=== PATIENT | female | born 1975 | race African-American/Black ===

== ENCOUNTER 2020-08-10 13:53 | Emergency (ER) | payer MEDICAID ==
[~2020-08-10] VITALS: Ht 165.1 cm; Wt 68.0 kg
[2020-08-10] MEDS ORDERED: ACETAMINOPHEN 325MG TABLET PO STA (15:07)
[2020-08-10 15:56] LABS: CLARITY URINE CLEAR (CLEAR); COLOR URINE YELLOW (YELLOW); KETONES URINE 1+ (NEGATIVE); LEUKOCYTE ESTERASE URINE TRACE (NEGATIVE); NITRITE URINE NEGATIVE (NEGATIVE); OCCULT BLOOD URINE 2+ (NEGATIVE); PH URINE 6.5 (4.5-8.0); PROTEIN URINE TRACE (NEGATIVE); SPECIFIC GRAVITY URINE 1.017 (1.005-1.030)
[2020-08-10 16:18] LABS: *AMPHETAMINES SCREEN URINE NEGATIVE (NEGATIVE); *BARBITURATES SCREEN URINE NEGATIVE (NEGATIVE); *BENZODIAZEPINES SCREEN URINE NEGATIVE (NEGATIVE); *COCAINE SCREEN URINE NEGATIVE (NEGATIVE); PHENCYCLIDINE URINE SCREEN NEGATIVE (NEGATIVE)
[2020-08-10 16:19] LABS: METHADONE URINE SCREEN NEGATIVE (NEGATIVE); OPIATES URINE SCREEN NEGATIVE (NEGATIVE)
[2020-08-10 16:20] LABS: CANNABINOID URINE SCREEN PRESUMTIVE POSITIVE (NEGATIVE)
[2020-08-10] MEDS ORDERED: NAPR-681 PO (16:37)
[2020-08-10 16:59] VITALS: BP 126/80
== END 2020-08-10 17:01 | disposition home or self-care (01) ==
LOC: ER 14:12
DX: R51.9 Headache, unspecified (principal); F12.10 Cannabis abuse, uncomplicated; R20.2 Paresthesia of skin; F99 Mental disorder, not otherwise specified
CPT/HCPCS: 80305; 81003; 81025; 99283